=== PATIENT | male | born 1995 | race Hispanic/Latino ===

== ENCOUNTER 2016-10-03 13:24 | Emergency (ER) | payer OTHER ==
[~2016-10-03] VITALS: Ht 180.3 cm; Wt 65.0 kg
[~2016-10-03 13:24] MED LIST: LORTAB5 PO; LOTRISONE CREAM15 GM EX; NAPROSYN500 MG PO; NO HOME MEDS; ULTRAM50 M1 PO
[2016-10-03 13:50] LABS: HEMATOCRIT 45.2 % (39.0-50.0); HEMOGLOBIN 15.7 g/dl (14.0-18.0); IMMATURE GRANULOCYTES 0.3 % (0.0-1.0); MEAN CORPUSCULAR HGB CONC 34.7 g/L CALC (32.0-36.0); NEUT# 3.76 thou/uL (1.82-7.42); RED BLOOD COUNT 4.76 mill/uL (4.70-6.10); RED CELL DISTRI WIDTH 12.5 % (11.5-15.5)
[2016-10-03 14:04] LABS: ALBUMIN 5.3 g/dL (3.2-5.0); ALKALINE PHOSPHATASE 54 u/l (38-126); AMYLASE 63 u/l (30-110); ANION GAP 16 (6-22 (CALC)); BILIRUBIN, TOTAL 1.7 mg/dL (0.0-1.4); BUN 21 mg/dL (9-20); BUN/CREATININE RATIO 17 (12-20 (CALC)); CALCIUM 10.1 mg/dL (8.4-10.2); CARBON DIOXIDE 28 mmol/l (22-30); CHLORIDE 101 mmol/l (95-108); CREATININE 1.2 mg/dL (0.7-1.3); GFR > 60 ML/MIN (>=60 (CALC)); GFR FOR AFR.AMER. > 60 ML/MIN (>=60 (CALC)); GLUCOSE 88 mg/dL (75-110); LIPASE 65 u/l (23-300); POTASSIUM 4.2 mmol/l (3.5-5.1); SGOT/AST 32 u/l (17-59); SGPT/ALT 38 u/l (21-72); SODIUM 142 mmol/l (137-146); TOTAL PROTEIN 8.4 g/dL (6.3-8.2)
[2016-10-03 14:26] LABS: URINE BLOOD DIPSTICK NEGATIVE (NEGATIVE); URINE CLARITY CLEAR; URINE COLOR YELLOW; URINE GLUCOSE - DIPSTICK NEGATIVE (NEGATIVE); URINE KETONE 15 mg/dL (NEGATIVE); URINE LEUK ESTERASE NEGATIVE (NEGATIVE); URINE NITRITE - DIPSTICK NEGATIVE (Negative); URINE PROTEIN - DIPSTICK TRACE mg/dL (NEG-TRACE); URINE SPECIFIC GRAVITY 1.025
[2016-10-03 14:39] LABS: URINE BILIRUBIN - DIPSTICK SMALL (NEGATIVE)
[2016-10-03 15:21] LABS: BARBITURATES NEGATIVE (NEGATIVE); COCAINE POSITIVE (NEGATIVE); METHADONE NEGATIVE (NEGATIVE); OXCYCODONE NEGATIVE (NEGATIVE); TETRAHYDROCANNABIONOL POSITIVE (NEGATIVE); TRICYLIC ANTIDEPRESSANTS NEGATIVE (NEGATIVE)
[2016-10-03 15:49] VITALS: BP 131/76
== END 2016-10-03 15:51 | disposition home or self-care (01) | DRG 392 ==
LOC: ED 13:24
PROVIDERS: Emergency Medicine
DX: R10.11 Right upper quadrant pain (principal); F17.210 Nicotine dependence, cigarettes, uncomplicated; F14.90 Cocaine use, unspecified, uncomplicated; Z72.89 Other problems related to lifestyle

== ENCOUNTER 2016-12-09 16:48 | Emergency (ER) | payer OTHER ==
[~2016-12-09] VITALS: Ht 180.3 cm; Wt 62.0 kg
[2016-12-09] MEDS ORDERED: IBUPROFEN600 MG PO (17:24)
[2016-12-09 18:07] VITALS: BP 125/71
== END 2016-12-09 18:07 | disposition home or self-care (01) | DRG 563 ==
LOC: ED 16:48
PROC: 2W3DX1Z Immobilization of Left Lower Arm using Splint (ICD-10-PCS; principal; 2016-12-09)
DX: S63.502A Unspecified sprain of left wrist, initial encounter (principal); W10.8XXA Fall (on) (from) other stairs and steps, initial encounter; Y92.008 Other place in unspecified non-institutional (private) residence as the place of occurrence of the external cause

== ENCOUNTER 2017-03-04 08:33 | Emergency (ER) | payer OTHER ==
[~2017-03-04] VITALS: Ht 180.3 cm; Wt 62.0 kg
[~2017-03-04 08:33] MED LIST changes: +IBUPROFEN600 MG PO
[2017-03-04] MEDS ORDERED: ULTRAM50 M1 PO (08:43)
[2017-03-04] MEDS ORDERED: AMOXICILLIN875 MG PO (08:43)
[2017-03-04] MEDS ORDERED: FLOXIN OTIC0.3 % OT (08:43)
[2017-03-04] MEDS ORDERED: FLONASE AL50 MCG/ACT (08:43)
[2017-03-04 08:50] VITALS: BP 118/77
== END 2017-03-04 08:55 | disposition home or self-care (01) | DRG 153 ==
LOC: ED 08:33
DX: H66.91 Otitis media, unspecified, right ear (principal); H92.01 Otalgia, right ear

== ENCOUNTER 2017-04-19 08:29 | Emergency (ER) | payer OTHER ==
[~2017-04-19] VITALS: Ht 180.3 cm; Wt 60.0 kg
[~2017-04-19 08:29] MED LIST changes: +AMOXICILLIN875 MG PO; +FLONASE AL50 MCG/ACT; +FLOXIN OTIC0.3 % OT
[2017-04-19] MEDS ORDERED: MOTRIN800 MG PO (09:37)
[2017-04-19 10:08] VITALS: BP 132/81
== END 2017-04-19 10:10 | disposition home or self-care (01) | DRG 605 ==
LOC: ED 08:29
DX: S60.221A Contusion of right hand, initial encounter (principal); F17.210 Nicotine dependence, cigarettes, uncomplicated; W22.8XXA Striking against or struck by other objects, initial encounter

== ENCOUNTER 2017-07-26 18:02 | Emergency (ER) | payer OTHER ==
[~2017-07-26] VITALS: Ht 180.3 cm; Wt 59.0 kg
[~2017-07-26 18:02] MED LIST changes: +MOTRIN800 MG PO
[2017-07-26 18:43] LABS: URINE BILIRUBIN - DIPSTICK NEGATIVE (NEGATIVE); URINE BLOOD DIPSTICK NEGATIVE (NEGATIVE); URINE COLOR YELLOW; URINE GLUCOSE - DIPSTICK NEGATIVE (NEGATIVE); URINE KETONE NEGATIVE (NEGATIVE); URINE LEUK ESTERASE NEGATIVE (NEGATIVE); URINE NITRITE - DIPSTICK NEGATIVE (Negative); URINE PH 7.5 (4.5-8.0); URINE PROTEIN - DIPSTICK NEGATIVE (NEG-TRACE); URINE UROBILINOGEN - DIPSTICK 0.2 E.U./dL (0.2)
[2017-07-26 18:44] LABS: URINE CLARITY CLOUDY
[2017-07-26] MEDS ORDERED: NAPROSYN500 MG PO (18:56)
[2017-07-26 19:17] VITALS: BP 121/67
== END 2017-07-26 19:10 | disposition home or self-care (01) | DRG 206 ==
LOC: ED 18:02
PROVIDERS: Emergency Medicine
DX: S23.41XA Sprain of ribs, initial encounter (principal); F17.210 Nicotine dependence, cigarettes, uncomplicated; R07.81 Pleurodynia

== ENCOUNTER 2018-02-12 04:14 | Emergency (ER) | payer OTHER ==
[~2018-02-12] VITALS: Ht 180.3 cm; Wt 68.0 kg
[2018-02-12 04:58] VITALS: BP 136/91
== END 2018-02-12 04:56 | disposition home or self-care (01) ==
LOC: ED 04:14
DX: Z00.00 Encounter for general adult medical examination without abnormal findings (principal); F17.210 Nicotine dependence, cigarettes, uncomplicated; R10.9 Unspecified abdominal pain

== ENCOUNTER 2018-05-12 12:41 | Emergency (ER) | payer OTHER ==
[~2018-05-12] VITALS: Ht 180.3 cm; Wt 70.0 kg
[2018-05-12 14:00] LABS: URINE BILIRUBIN - DIPSTICK NEGATIVE (NEGATIVE); URINE BLOOD DIPSTICK NEGATIVE (NEGATIVE); URINE COLOR YELLOW; URINE GLUCOSE - DIPSTICK NEGATIVE (NEGATIVE); URINE KETONE NEGATIVE (NEGATIVE); URINE LEUK ESTERASE NEGATIVE (Negative); URINE NITRITE - DIPSTICK NEGATIVE (Negative); URINE PH 5.5 (4.5-8.0); URINE PROTEIN - DIPSTICK NEGATIVE (NEG-TRACE); URINE SPECIFIC GRAVITY >=1.030; URINE UROBILINOGEN - DIPSTICK 0.2 E.U./dL (0.2)
[2018-05-12 14:02] LABS: HEMATOCRIT 46.9 % (39.0-50.0); HEMOGLOBIN 15.9 g/dl (14.0-18.0); MEAN CELL VOLUME 96.3 fL CALC (80.0-100.0); MEAN CORPUSCULAR HGB 32.6 pG CALC (26.0-32.0); MEAN CORPUSCULAR HGB CONC 33.9 g/L CALC (32.0-36.0); NEUT# 3.63 thou/uL (1.82-7.42); RED BLOOD COUNT 4.87 mill/uL (4.70-6.10); RED CELL DISTRI WIDTH 12.7 % (11.5-15.5); URINE CLARITY CLEAR
[2018-05-12 14:03] LABS: BARBITURATES NEGATIVE (NEGATIVE); COCAINE POSITIVE (NEGATIVE); METHADONE NEGATIVE (NEGATIVE); OXCYCODONE NEGATIVE (NEGATIVE); TETRAHYDROCANNABIONOL POSITIVE (NEGATIVE); TRICYLIC ANTIDEPRESSANTS NEGATIVE (NEGATIVE)
[2018-05-12 14:13] LABS: ALBUMIN 5.5 g/dL (3.2-5.0); ALKALINE PHOSPHATASE 63 u/l (38-126); ANION GAP 15 (6-22 (CALC)); BILIRUBIN, TOTAL 0.6 mg/dL (0.0-1.4); BUN 12 mg/dL (9-20); BUN/CREATININE RATIO 10 (12-20 (CALC)); CARBON DIOXIDE 30 mmol/l (22-30); CHLORIDE 104 mmol/l (95-108); CREATININE 1.1 mg/dL (0.7-1.3); GFR > 60 ML/MIN (>=60 (CALC)); GFR FOR AFR.AMER. > 60 ML/MIN (>=60 (CALC)); LIPASE 106 u/l (23-300); POTASSIUM 4.5 mmol/l (3.5-5.1); SGOT/AST 25 u/l (17-59); SODIUM 144 mmol/l (137-146); TOTAL PROTEIN 8.8 g/dL (6.3-8.2)
[2018-05-12 15:25] VITALS: BP 148/72
== END 2018-05-12 15:31 | disposition home or self-care (01) ==
LOC: ED 12:41
DX: K59.00 Constipation, unspecified (principal); F17.200 Nicotine dependence, unspecified, uncomplicated; R10.12 Left upper quadrant pain
CPT/HCPCS: Q9967

== ENCOUNTER 2018-09-14 07:43 | Emergency (ER) | payer OTHER ==
[~2018-09-14] VITALS: Ht 180.3 cm; Wt 71.0 kg
[2018-09-14 08:10] VITALS: BP 131/81
[2018-09-14] MEDS ORDERED: KEFLEX500 M1 PO (08:22)
== END 2018-09-14 08:40 | disposition home or self-care (01) ==
LOC: ED 07:43
DX: S61.011A Laceration without foreign body of right thumb without damage to nail, initial encounter (principal); S61.212A Laceration without foreign body of right middle finger without damage to nail, initial encounter; S61.411A Laceration without foreign body of right hand, initial encounter; F17.210 Nicotine dependence, cigarettes, uncomplicated; W25.XXXA Contact with sharp glass, initial encounter; Y92.009 Unspecified place in unspecified non-institutional (private) residence as the place of occurrence of the external cause

== ENCOUNTER 2018-11-01 14:15 | Emergency (ER) | payer OTHER ==
[~2018-11-01] VITALS: Ht 180.3 cm; Wt 68.1 kg
[~2018-11-01 14:15] MED LIST changes: +KEFLEX500 M1 PO
[2018-11-01] MEDS ORDERED: VOLTAREN - GENE75 MG PO (15:01)
[2018-11-01 15:10] VITALS: BP 126/70
== END 2018-11-01 15:10 | disposition home or self-care (01) ==
LOC: ED 14:15
DX: M77.9 Enthesopathy, unspecified (principal); F17.210 Nicotine dependence, cigarettes, uncomplicated

== ENCOUNTER 2019-07-03 | Emergency (ER) | payer MEDICAID ==
[~2019-07-03] MED LIST changes: +VOLTAREN - GENE75 MG PO
[2019-07-03 17:41] LABS: HEMATOCRIT 49.2 % (39.0-50.0); HEMOGLOBIN 16.6 g/dl (14.0-18.0); IMMATURE GRANULOCYTES 0.2 % (0.0-5.0); MEAN CELL VOLUME 96.7 fL CALC (80.0-100.0); MEAN CORPUSCULAR HGB 32.6 pG CALC (26.0-32.0); MEAN CORPUSCULAR HGB CONC 33.7 g/L CALC (32.0-36.0); NEUT# 10.4 thou/uL (1.82-7.42); RED BLOOD COUNT 5.09 mill/uL (4.70-6.10); RED CELL DISTRI WIDTH 13.2 % (11.5-15.5)
[2019-07-03 17:42] LABS: URINE BILIRUBIN - DIPSTICK NEGATIVE (NEGATIVE); URINE BLOOD DIPSTICK NEGATIVE (NEGATIVE); URINE COLOR YELLOW; URINE GLUCOSE - DIPSTICK NEGATIVE (NEGATIVE); URINE KETONE NEGATIVE (NEGATIVE); URINE LEUK ESTERASE NEGATIVE (NEGATIVE); URINE NITRITE - DIPSTICK NEGATIVE (Negative); URINE PROTEIN - DIPSTICK NEGATIVE (NEG-TRACE); URINE SPECIFIC GRAVITY 1.025
[2019-07-03 18:00] LABS: ALBUMIN 5.3 g/dL (3.2-5.0); ALKALINE PHOSPHATASE 65 u/l (38-126); ANION GAP 15 (6-22 (CALC)); BUN 18 mg/dL (9-20); BUN/CREATININE RATIO 16 (12-20 (CALC)); CARBON DIOXIDE 27 mmol/l (22-30); CHLORIDE 102 mmol/l (95-108); CREATININE 1.1 mg/dL (0.7-1.3); GFR > 60 ML/MIN (>=60 (CALC)); GFR FOR AFR.AMER. > 60 ML/MIN (>=60 (CALC)); LIPASE 108 u/l (23-300); POTASSIUM 4.2 mmol/l (3.5-5.1); SGOT/AST 29 u/l (17-59); SODIUM 139 mmol/l (137-146); TOTAL PROTEIN 8.8 g/dL (6.3-8.2)
[2019-07-03 18:05] LABS: BILIRUBIN, TOTAL 1.2 mg/dL (0.0-1.4)
[2019-07-03] MEDS ORDERED: ONDANSETRON4 MG PO (18:52)
== END 2019-07-03 19:20 | disposition home or self-care (01) | DRG 392 ==
PROVIDERS: Family Medicine
DX: R10.13 Epigastric pain (principal); R11.2 Nausea with vomiting, unspecified; F17.200 Nicotine dependence, unspecified, uncomplicated

== ENCOUNTER 2021-05-21 16:35 | Emergency (ER) | payer OTHER ==
[~2021-05-21] VITALS: Ht 180.3 cm; Wt 80.0 kg
[~2021-05-21 16:35] MED LIST changes: +ONDANSETRON4 MG PO
[2021-05-21] MEDS ORDERED: IBUPROFEN600 MG PO (18:30)
[2021-05-21 18:50] VITALS: BP 143/76
== END 2021-05-21 18:50 | disposition home or self-care (01) | DRG 563 ==
LOC: ED 16:35
DX: S63.615A Unspecified sprain of left ring finger, initial encounter (principal); S60.042A Contusion of left ring finger without damage to nail, initial encounter; F17.200 Nicotine dependence, unspecified, uncomplicated; W23.0XXA Caught, crushed, jammed, or pinched between moving objects, initial encounter; Y93.89 Activity, other specified; Y92.89 Other specified places as the place of occurrence of the external cause; Y99.0 Civilian activity done for income or pay

== ENCOUNTER 2022-10-27 13:31 | Emergency (ER) | payer OTHER ==
[~2022-10-27] VITALS: Ht 180.3 cm; Wt 74.8 kg
[2022-10-27] VITALS (7 sets, daily range): BP systolic 130–195; BP diastolic 82–100
[2022-10-27 14:10] LABS: BASO% 0.4 % (0-3); EOS% 1.2 % (0-8); HEMATOCRIT 43.8 % (39.0-50.0); HEMOGLOBIN 14.6 g/dl (14.0-18.0); IMMATURE GRANULOCYTES 0.1 % (0.0-5.0); LYMPH% 29.1 % (15-41); MEAN CELL VOLUME 95.8 fL CALC (80.0-100.0); MEAN CORPUSCULAR HGB 31.9 pG CALC (26.0-32.0); MEAN CORPUSCULAR HGB CONC 33.3 g/dL CAL (32.0-36.0); MONO% 11.9 % (2-13); NEUT# 3.85 thou/uL (1.82-7.42); NEUT% 57.3 % (42-76); RED BLOOD COUNT 4.57 mill/uL (4.70-6.10); RED CELL DISTRI WIDTH 13.3 % (11.5-15.5)
[2022-10-27 14:21] LABS: ALBUMIN 4.5 g/dL (3.2-5.0); ALKALINE PHOSPHATASE 68 u/l (38-126); ANION GAP 14 (6-22 (CALC)); BUN 15 mg/dL (9-20); BUN/CREATININE RATIO 16 (12-20 (CALC)); CARBON DIOXIDE 26 mmol/l (22-30); CHLORIDE 105 mmol/l (95-108); CREATININE 0.9 mg/dL (0.7-1.3); GFR FOR AFR.AMER. > 60 ML/MIN (>=60 (CALC)); GFR OTHER RACES > 60 ML/MIN (>=60 (CALC)); LIPASE 127 u/l (23-300); POTASSIUM 4.1 mmol/l (3.5-5.1); SGOT/AST 43 u/l (17-59); SODIUM 141 mmol/l (137-146); TOTAL PROTEIN 7.9 g/dL (6.3-8.2)
[2022-10-27 14:23] LABS: BILIRUBIN, TOTAL 0.8 mg/dL (0.2-1.3)
== END 2022-10-27 16:15 | disposition home or self-care (01) ==
LOC: ED 13:31
PROVIDERS: Family Medicine
DX: S20.211A Contusion of right front wall of thorax, initial encounter (principal); F17.200 Nicotine dependence, unspecified, uncomplicated; W11.XXXA Fall on and from ladder, initial encounter
CPT/HCPCS: Q9967

== ENCOUNTER 2023-04-27 12:26 | Emergency (ER) | payer SELFPAY ==
[~2023-04-27] VITALS: Ht 180.3 cm; Wt 90.0 kg
[2023-04-27] VITALS (8 sets, daily range): BP systolic 117–143; BP diastolic 74–104
[2023-04-27] MEDS ORDERED: NEURONTIN100 MG PO (14:00)
[2023-04-27] MEDS ORDERED: PERCOCET 5/325M1 TAB PO (14:00)
[2023-04-27] MEDS ORDERED: NAPROXEN500 MG PO (14:00)
[2023-04-27] MEDS ORDERED: VALTREX1 GM PO (14:00)
[2023-04-27] MEDS ORDERED: [UNRECOGNIZED DRUG - CODE] OS (14:07)
== END 2023-04-27 14:27 | disposition home or self-care (01) | DRG 125 ==
LOC: ED 12:26
DX: S05.02XA Injury of conjunctiva and corneal abrasion without foreign body, left eye, initial encounter (principal); B02.9 Zoster without complications; F17.200 Nicotine dependence, unspecified, uncomplicated; X58.XXXA Exposure to other specified factors, initial encounter